=== PATIENT | male | born 1985 | race Caucasian/White ===

== ENCOUNTER 2017-06-24 14:24 | Emergency (ER) | payer OTHER ==
[~2017-06-24] VITALS: Ht 172.7 cm; Wt 150.0 kg
--- NOTE | 2017-06-24 15:01 | PD ---
HPI Chief Complaint: Roche act Time Seen by Provider: 14:33 Travel History International Travel<30 days: No Contact w/Intl Traveler<30days: No History of Present Illness HPI Patient 31-year-old male with a history of Asperger's disease presents emergency department under Roche act, apparently the patient threatened to cut himself today. He states that he and his mother argue about money and this caused significant stress and he acted out. He states he would never hurt himself. Denies any physical complaints, denies any chest pain shortness breath abdominal pain nausea vomiting diarrhea constipation. Symptoms are mild , started today, context as above, associated signs and symptoms as above PFSH Past Medical History Narrative Medical Asperger's, depression Past Surgical History Narrative Surgical Denies Social History Alcohol Use: No Tobacco Use: No Allergies-Medications (Allergen,Severity, Reaction): Coded Allergies: bupropion (Verified Allergy, Severe, Anaphylaxis, 06/24/17) Reported Meds & Prescriptions Reported Meds & Active Scripts Active No Active Prescriptions or Reported Medications Review of Systems Except as stated in HPI: all other systems reviewed are Neg Physical Exam Narrative GENERAL: Well-developed well-nourished, morbidly obese male in no obvious distress peer SKIN: Focused skin assessment warm/dry. No signs of lacerations on his forearms or person. HEAD: Atraumatic. Normocephalic. EYES: Pupils equal and round. No scleral icterus. No injection or drainage. ENT: No nasal bleeding or discharge. Mucous membranes pink and moist. NECK: Trachea midline. No JVD. CARDIOVASCULAR: Regular rate and rhythm. No murmur appreciated. RESPIRATORY: No accessory muscle use. Clear to auscultation. Breath sounds equal bilaterally. GASTROINTESTINAL: Abdomen soft, non-tender, nondistended. Hepatic and splenic margins not palpable. MUSCULOSKELETAL: No obvious deformities. No clubbing. No cyanosis. No edema. NEUROLOGICAL: Awake and alert. No obvious cranial nerve deficits. Motor grossly within normal limits. Normal speech. PSYCHIATRIC: Appropriate mood and affect; insight and judgment fair. Denies suicidal homicidal ideation or audiovisual hallucinations. Data Data Last Documented VS Vital Signs Date Time Temp Pulse Resp B/P (MAP) Pulse Ox O2 Delivery O2 Flow Rate FiO2 06/24/17 17:29 06/24/17 15:17 98.6 96 16 96 Room Air Orders Orders Complete Blood Count With Diff (06/24/17 14:33) Comprehensive Metabolic Panel (06/24/17 14:33) Thyroid Stimulating Hormone (06/24/17 14:33) Psych Screen (06/24/17 14:33) Drug Screen, Random Urine (06/24/17 14:33) Alcohol (Ethanol) (06/24/17 14:33) Ed Discharge Order (06/24/17 17:18) Labs Laboratory Tests Test 06/24/17 15:00 White Blood Count 5.3 TH/MM3 Red Blood Count 5.23 MIL/MM3 Hemoglobin 14.9 GM/DL Hematocrit 44.6 % Mean Corpuscular Volume 85.4 FL Mean Corpuscular Hemoglobin 28.4 PG Mean Corpuscular Hemoglobin Concent 33.3 % Red Cell Distribution Width 12.9 % Platelet Count 309 TH/MM3 Mean Platelet Volume 7.8 FL Neutrophils (%) (Auto) 67.6 % Lymphocytes (%) (Auto) 21.4 % Monocytes (%) (Auto) 9.1 % Eosinophils (%) (Auto) 0.8 % Basophils (%) (Auto) 1.1 % Neutrophils # (Auto) 3.6 TH/MM3 Lymphocytes # (Auto) 1.1 TH/MM3 Monocytes # (Auto) 0.5 TH/MM3 Eosinophils # (Auto) 0.0 TH/MM3 Basophils # (Auto) 0.1 TH/MM3 CBC Comment DIFF FINAL Differential Comment Blood Urea Nitrogen 9 MG/DL Creatinine 0.92 MG/DL Random Glucose 90 MG/DL Total Protein 8.4 GM/DL Albumin 3.7 GM/DL Calcium Level 8.6 MG/DL Alkaline Phosphatase 57 U/L Aspartate Amino Transf (AST/SGOT) 79 U/L Alanine Aminotransferase (ALT/SGPT) 106 U/L Total Bilirubin 1.0 MG/DL Sodium Level 140 MEQ/L Potassium Level 4.2 MEQ/L Chloride Level 108 MEQ/L Carbon Dioxide Level 27.5 MEQ/L Anion Gap 5 MEQ/L Estimat Glomerular Filtration Rate 97 ML/MIN Thyroid Stimulating Hormone 3rd Gen 0.936 uIU/ML Urine Opiates Screen NEG Urine Barbiturates Screen NEG Urine Amphetamines Screen NEG Urine Benzodiazepines Screen NEG Urine Cocaine Screen NEG Urine Cannabinoids Screen NEG Ethyl Alcohol Level LESS THAN 3 MG/DL MDM Medical Decision Making Medical Screen Exam Complete: Yes Emergency Medical Condition: Yes Differential Diagnosis Suicidal ideation, adjustment disorder, anxiety, Narrative Course Patient seen and examined by me, he pulled a knife out and threatened to slice his own wrists and he states this is because his mom is using an is an addict and they are both poor and she worries about money. Medically he has no complaints of warrant further workup at this time, basic labs have been ordered according to protocol. He is medically cleared for psychiatric evaluation at this time. Was informed by nursing that after patient was evaluated by Jen the correct was lifted. I have no objection to this as the patient has very passive suicidal mentation. This appears to be a misunderstanding and his inability to express his feelings to his mother, he is told me that this was all a misunderstanding and thinks he can go home. I do not believe him to be a threat to himself or others. He is stable for discharge Diagnosis Primary Impression: Anxiety Scripts No Active Prescriptions or Reported Meds Disposition: 01 DISCHARGE HOME Condition: Stable Regan Foster MD Jun 24, 2017 15:01
[2017-06-24 15:17] VITALS: BP 142/73; PULSE 96; RESP 16; TEMP 98.6; O2SAT 96
[2017-06-24 15:29] LABS: AUTOMATED NEUTROPHIL # 3.6 TH/MM3 (1.8-7.7); BASOPHIL # 0.1 TH/MM3 (0-0.2); BASOPHIL % 1.1 % (0.0-2.0); EOSINOPHIL % 0.8 % (0.0-4.0); HEMATOCRIT 44.6 % (39.0-51.0); HEMOGLOBIN 14.9 GM/DL (13.0-17.0); LYMPH % 21.4 % (9.0-44.0); LYMPHOCYTE # 1.1 TH/MM3 (1.0-4.8); MEAN CELL VOLUME 85.4 FL (80.0-100.0); MEAN CORPUSCULAR HEMOGLOBIN 28.4 PG (27.0-34.0); MEAN CORPUSCULAR HGB CONC 33.3 % (32.0-36.0); MEAN PLATELET VOLUME 7.8 FL (7.0-11.0); MONO % 9.1 % (0.0-8.0); MONOCYTE # 0.5 TH/MM3 (0-0.9); NEUT % 67.6 % (16.0-70.0); PLATELET COUNT 309 TH/MM3 (150-450); RED BLOOD COUNT 5.23 MIL/MM3 (4.50-5.90); RED CELL DISTRIBUTION WIDTH 12.9 % (11.6-17.2); WHITE BLOOD COUNT 5.3 TH/MM3 (4.0-11.0)
[2017-06-24 15:57] LABS: ALKALINE PHOSPHATASE 57 U/L (45-117); BLOOD UREA NITROGEN 9 MG/DL (7-18); TOTAL PROTEIN 8.4 GM/DL (6.4-8.2)
[2017-06-24 15:59] LABS: ALBUMIN 3.7 GM/DL (3.4-5.0); ALT (GPT) 106 U/L (12-78); AST (GOT) 79 U/L (15-37); BICARBONATE 27.5 MEQ/L (21.0-32.0); CALCIUM 8.6 MG/DL (8.5-10.1); CHLORIDE 108 MEQ/L (98-107); CREATININE 0.92 MG/DL (0.60-1.30); GLOMERULAR FILTRATION RATE 97 ML/MIN (>89); GLUCOSE,RANDOM 90 MG/DL (74-106); SODIUM (NA) 140 MEQ/L (136-145)
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
== END 2017-06-24 17:37 | disposition home or self-care (01) ==
LOC: NEPJ 14:24
DX: F41.9 Anxiety disorder, unspecified (principal); F84.5 Asperger's syndrome
CPT/HCPCS: 80053; 80307; 84443; 85025; 99284